=== PATIENT | female | born 1970 | race Caucasian/White ===

== ENCOUNTER → 2018-03-18 | Outpatient (CLI) | payer OTHER | LOC: M PAIN 10:00 | DX: G57.02 Lesion of sciatic nerve, left lower limb (principal); M46.90 Unspecified inflammatory spondylopathy, site unspecified; M25.552 Pain in left hip; E06.3 Autoimmune thyroiditis; I10 Essential (primary) hypertension; F41.9 Anxiety disorder, unspecified; G47.30 Sleep apnea, unspecified; Z79.899 Other long term (current) drug therapy; Z88.0 Allergy status to penicillin; Z88.1 Allergy status to other antibiotic agents; Z88.8 Allergy status to other drugs, medicaments and biological substances; Z98.84 Bariatric surgery status | CPT/HCPCS: G0463 ==

== ENCOUNTER → 2018-04-18 | Outpatient (CLI) | payer OTHER ==
[~2018-04-18] MED LIST: BUPIVACAINE HCL 0.25% 30 ML VIAL As Ordered; ISOVUE-M 300 61% 15ML VIAL (Q9967) As Ordered; LIDOCAINE 1% SDV INJ 30 ML VIAL As Ordered; TRIAMCINOLONE ACETONIDE SUSP 40 MG/ML VIAL (J3301) As Ordered; diazePAM 5 MG TAB As Ordered; oxyCODONE 5MG TAB As Ordered
== END ==
LOC: M PAIN 13:00
DX: M79.18 Myalgia, other site (principal); G57.02 Lesion of sciatic nerve, left lower limb; F41.9 Anxiety disorder, unspecified; I10 Essential (primary) hypertension; G47.30 Sleep apnea, unspecified; E66.01 Morbid (severe) obesity due to excess calories; Z68.42 Body mass index [BMI] 45.0-49.9, adult; Z79.899 Other long term (current) drug therapy; Z88.0 Allergy status to penicillin; Z88.1 Allergy status to other antibiotic agents; Z88.8 Allergy status to other drugs, medicaments and biological substances; Z98.84 Bariatric surgery status
CPT/HCPCS: J3301

== ENCOUNTER → 2018-06-05 | Outpatient (CLI) | payer OTHER ==
--- NOTE | 2018-07-01 00:18 | ECWPNPC ---
PATIENT NAME: ANITHA CORTES : 1970 GENDER: FEMALE VISIT DATE: 06/05/2018 DISCHARGE DATE: 06/05/18 1111 VISIT LOCKED DATE TIME: PHYSICIAN: DIPTI HENRY RESOURCE: DIPTI HENRY REASON FOR APPOINTMENT 1. POST PROC HISTORY OF PRESENT ILLNESS HISTORY OF PRESENT ILLNESS: HERE FOR F/U OF CHRONIC LOW BACK PAIN AND LEFT HIP PAIN.HAD LEFT PIRIFORMIS INJECTION ON 04-18-18.REPORTING 24HR IMPROVEMENT THEN PAIN RETURNED TO HIGH LEVEL.ATTENDING PT PER OUR REFERRAL FOR LBP AND LEFT HIP PAIN.FOLLOWING WITH RHEUMATOLOGY FOR INFLAMMATORY ARTHROPATHY.HISTORY OF ADVERSE REACTIONS TO DMARDS MEDICATIONS RECENTLY AND THEY WERE STOPPED.CHIEF AREA OF PAIN IS LEFT LOW BUTTOCK.DISCUSSED TREATMENT OPTIONS.RATING PAIN VAS 3/10.FINDS IT DIFFICULT TO GET IN POSITION TO SLEEP AT NIGHT. PAIN THE PATIENT DESCRIBES THE PAIN... FALL RISK SCREENING: SCREENING :NO FALLS IN THE PAST YEAR CURRENT MEDICATIONS TAKING RESTASIS 0.05 % EMULSION 1 DROP INTO AFFECTED EYE OPHTHALMIC TWICE A DAY TAKING TRINTELLIX 20 MG TABLET 1 TABLET ORALLY ONCE A DAY TAKING B-12 DOTS 500 MCG TABLET DISINTEGRATING ORALLY TAKING HYDROMORPHONE HCL 4 MG TABLET 1 TABLET NEEDED ORALLY MDD 6 TAKING TYLENOL 8 HOUR 650 MG TABLET EXTENDED RELEASE 2 TABLETS NEEDED ORALLY EVERY 8 HRS TAKING TURMERIC 400 MG CAPSULE ORALLY DAILY, NOTES: UNSURE OF DOSE NOT-TAKING METHOTREXATE 2.5 MG TABLET ORALLY NOT-TAKING FOLIC ACID 1 MG TABLET 1 TABLET ORALLY ONCE A DAY MEDICATION LIST REVIEWED AND RECONCILED WITH THE PATIENT PAST MEDICAL HISTORY ANXIETY CERVICAL DISC DISORDER CHRONIC LOW BACK PAIN DIZZINESS, FATIGUE, SYNCOPE AXIAL SPONDYLOARTHRITIS AND LUPUS HTN SLEEP APNEA PNEUMONIA BRONCHITIS ALLERGIES CLINDAMYCIN HCL ERYTHROMYCIN PENICILLIN (FOR ALLERGIES USE ONLY) SEPTRA DS DOXYCYCLINE SURGICAL HISTORY GASTRIC BYPASS 11/28/12 D AND C SINUS SURGERY 2 ANKLE SURGERY SPINAL FUSION 2013 FAMILY HISTORY FATHER: ALIVE, DIAGNOSED WITH DIABETES, HEART DISEASE MOTHER: ALIVE, DIAGNOSED WITH DIABETES SIBLINGS: ALIVE SON(S): ALIVE PATERNAL GRAND MOTHER: DIAGNOSED WITH CANCER SISTER - ALEKSANDRA'S. SOCIAL HISTORY GENERAL: TOBACCO USE ARE YOU A:NONSMOKER ALCOHOL SCREENING DID YOU HAVE A DRINK CONTAINING ALCOHOL IN THE PAST YEAR?YES HOW OFTEN DID YOU HAVE A DRINK CONTAINING ALCOHOL IN THE PAST YEAR?MONTHLY OR LESS (1 POINT) POINTS1 INTERPRETATIONNEGATIVE RECREATIONAL DRUG USE DRUG USE?NO CAFFEINE CAFFEINE USE?YES CUP OF COFFEE DAILY EPISCOPAL CDEXDUDY25 FAITH LANGUAGE LANGUAGES SPOKEN:ARABIC EDUCATION LEVEL OF EDUCATION:FINISHED COLLEGE OCCUPATION: DO YOU FEEL SAFE IN YOUR ENVIRONMENT? YES. DIET: DO YOU FEEL SAFE IN YOUR ENVIRONMENT? YES, EDUCATION. EXERCISE: DO YOU FEEL SAFE IN YOUR ENVIRONMENT? YES, EDUCATION, REGULARREDUCED PORTION. MARITAL STATUS: DO YOU FEEL SAFE IN YOUR ENVIRONMENT? YES, EDUCATION, REGULARREDUCED PORTIO "NOT ANYMORE". OTHERS AT HOME: DO YOU FEEL SAFE IN YOUR ENVIRONMENT? YES, EDUCATION, REGULARREDUCED PORTIO "NOT ANYMORE", . IMMUNIZATION PROGRAM DO YOU FEEL SAFE IN YOUR ENVIRONMENT? YES, EDUCATION, REGULARREDUCED PORTIO "NOT ANYMORE", , SPOUSE, CHILDREN. PAIN CLINIC PFS, CLERGY, PUBLIC HEALTH REFERRALS PFS REFERRAL NEEDED?NO CLERGY REFERRAL NEEDED?NO PUBLIC HEALTH REFERRAL NEEDED?NO WAS THE PROVIDER NOTIFIED OF ANY PERTINENT INFO?NO HAS THE PATIENT BEEN EDUCATED REGARDING HIS/HER PLAN OF CARE?YES HAS THE PATIENT BEEN EDUCATED REGARDING PAIN, THE RISK FOR PAIN, THE IMPORTANCE OF EFFECTIVE PAIN MANAGEMENT, AND THE PAIN ASSESSMENT PROCESS?YES HOUSING: PFS REFERRAL NEEDED? NO, CLERGY REFERRAL NEEDED? NO, PUBLIC HEALTH REFERRAL NEEDED? NO, WAS THE PROVIDER NOTIFIED OF ANY PERTINENT INFO? NO, HAS THE PATIENT BEEN EDUCATED REGARDING HIS/HER PLAN OF CARE? YES, HAS THE PATIENT BEEN EDUCATED REGARDING PAIN, THE RISK FOR PAIN, THE IMPORTANCE OF EFFECTIVE PAIN MANAGEMENT, AND THE PAIN ASSESSMENT PROCESS? YES. ADVANCE DIRECTIVE ADVANCE DIRECTIVE DISCUSSED WITH PATIENT:YES DECLINES HCP INFORMATION. REVIEWED WITH PATIENT 06/05/18 1031 JS. HOSPITALIZATION/MAJOR DIAGNOSTIC PROCEDURE MONO [facility] REVIEW OF SYSTEMS REVIEWED BY: PROVIDER: DIPTI VILLASEÑOR . CONSTITUTIONAL: ANY CHANGE IN YOUR MEDICAL CONDITION? NO . CHILLS NO . FEVER NO . INFECTION: DO YOU HAVE NEW INFECTIONS? NO . DO YOU HAVE HISTORY OF MRSA? NO . MUSCULOSKELETAL: ANY NEW PATTERNS OF PAIN OR NUMBNESS? NO . GASTROENTEROLOGY: ANY NEW CHANGE IN BOWEL CONTROL? NO . GENITOURINARY: ANY NEW CHANGE IN BLADDER CONTROL? NO . IS THERE A CHANCE YOU COULD BE ? NO . HEMATOLOGY/LYMPH: DO YOU TAKE ANY BLOOD THINNERS? (FOR EXAMPLE- COUMADIN, PLAVIX, AGGRENOX, PLATEL, PRADAXA, OR XARELTO) NO . WHEN WAS YOUR LAST DOSE? DATE: TIME: . NEUROLOGY: HAVE YOU FALLEN IN THE PAST 6 MONTHS? YES, STATES FALL END OF NOVEMBER, DISCUSSED AT PREVIOUS VISIT . ANY NEW EXTREMITY NUMBNESS OR WEAKNESS? NO . CARDIOLOGY: DO YOU HAVE A PACEMAKER OR DEFIBRILLATOR? NO . RESPIRATORY: HAVE YOU BEEN SICK IN THE PAST WEEK? NO . FEVER NO . FLU LIKE SYMPTOMS? NO . COUGH YES, PRODUCTIVE, HAS BEEN TREATED WITH 3 ROUNDS OF ANTIBIOTICS FOR BRONCHITIS AND PNEUMONIA . INTEGUMENTARY: DO YOU HAVE ANY RASHES OR OPEN SORES? NO . ALLERGIC/IMMUNO: ARE YOU ALLERGIC TO SHELLFISH OR IV DYE? NO . ANY NEW ALLERGIES? NO . PSYCHIATRIC: DO YOU HAVE THOUGHTS OF HURTING YOURSELF OR SOMEONE ELSE? NO . ARE YOU ABUSED, NEGLECTED, OR IN AN UNSAFE ENVIRONMENT? NO . ENDOCRINOLOGY: ARE YOU DIABETIC? NO . OTHER: DO YOU NEED ANY PRESCRIPTIONS? NO . IF YES, PLEASE LIST: ____ . ANY NEW PROBLEMS WITH YOUR MEDICATIONS? YES, METHOTREXATE DISCONTINUED . WHEN DID YOU LAST EAT? ____ . WHEN DID YOU LAST DRINK? ____ . WHAT DID YOU LAST DRINK? ____ . NAME OF PERSON DRIVING YOU HOME? ____ . DO YOU HAVE ANY OTHER QUESTIONS OR CONCERNS YES, PATIENT STATES SHE STARTED PT, DISCONTINUED METHOTREXATE AND WILL SEE RHEUMATOLOGY AGAIN ON 06/17/18 . VITAL SIGNS WT 203.0 LBS, HT 55 IN, BMI 47.18 INDEX, BP 137/72 MM HG, HR 66 /MIN, RR 16 /MIN, TEMP 98.0 F, OXYGEN SAT % 97%, SAFE IN ENV? (Y/N) YES, REVIEWED BY: JOHN. EXAMINATION GENERAL EXAMINATION: GENERAL APPEARANCE:AWAKE,ALERT ,PLEAASANT . PSYCHAFFECT NORMAL . LUNGS:LUNG DAILEY ARE CLEAR TO AUSCULTATION BILATERALLY. GOOD MOVEMENT OF AIR . HEART:S1, S2 IN A REGULAR RATE AND RHYTHM. NO SIGNIFICANT MURMURS, RUBS OR GALLOPS NOTED . MUSCULOSKELETAL:WEAK OVER RIGHT LEG . LUMBAR SACRAL SPINEPALPATION: + FOR PAIN OVER LEFT PIRIFORMIS MUSCLE.. + FOR PAIN OVER L/S PARASPINALS . NEUROLOGIC EXAM:NORMAL SENSATION LIGHT TOUCH BILAT. LOWER EXTREMITIES . 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 PROCEDURE CODES FA211 ESTABILISHED PATIENT [facility] FACILITY CHARGE DISPOSITION & COMMUNICATION FOLLOW UP POST (REASON: LEFT PIRIFORMIS(OR LOWER) STEROID INJECTION) ELECTRONICALLY SIGNED BY KASI COON ON 06/30/2018 AT 03:41 PM EST DISCLAIMER : THIS IS A VISIT SUMMARY EXTRACTED FROM THE [employer] CHART. IT IS NOT A COPY OF THE [employer] PROGRESS NOTE. RAJEEV
== END ==
LOC: M PAIN 10:15
PROVIDERS: ATTEND Nurse Practitioner Family
DX: G57.02 Lesion of sciatic nerve, left lower limb (principal); M46.90 Unspecified inflammatory spondylopathy, site unspecified; M25.552 Pain in left hip; F41.1 Generalized anxiety disorder; I10 Essential (primary) hypertension; Z79.891 Long term (current) use of opiate analgesic; Z79.899 Other long term (current) drug therapy; Z98.84 Bariatric surgery status; Z88.0 Allergy status to penicillin; Z88.1 Allergy status to other antibiotic agents

== ENCOUNTER → 2018-07-01 | Outpatient (CLI) | payer OTHER ==
[~2018-07-01] MED LIST changes: -BUPIVACAINE HCL 0.25% 30 ML VIAL As Ordered; +BUPIVACAINE HCL 0.25% 30 ML VIAL As Ordered ONE; -ISOVUE-M 300 61% 15ML VIAL (Q9967) As Ordered; +ISOVUE-M 300 61% 15ML VIAL (Q9967) As Ordered ONE; -LIDOCAINE 1% SDV INJ 30 ML VIAL As Ordered; +LIDOCAINE 1% SDV INJ 30 ML VIAL As Ordered ONE; -TRIAMCINOLONE ACETONIDE SUSP 40 MG/ML VIAL (J3301) As Ordered; +TRIAMCINOLONE ACETONIDE SUSP 40 MG/ML VIAL (J3301) As Ordered ONE; -diazePAM 5 MG TAB As Ordered; +diazePAM 5 MG TAB As Ordered ONE; -oxyCODONE 5MG TAB As Ordered; +oxyCODONE 5MG TAB As Ordered ONE
--- NOTE | 2018-07-01 13:36 | REP ---
Left hip: Two views. History: Injection procedure for pain. 14 seconds of fluoroscopy time is reported. Findings: A sequence of two last image hold fluoroscopically obtained spot radiographs document needle position and contrast injection associated with injection procedure. Electronically Signed by Jesus Flores MD 07/01/2018 01:47 P
--- NOTE | 2018-07-15 00:31 | ECWPNPC ---
PATIENT NAME: ANITHA CORTES : 1970 GENDER: FEMALE VISIT DATE: 07/01/2018 DISCHARGE DATE: 07/01/18 1307 VISIT LOCKED DATE TIME: PHYSICIAN: LIU LOERA MD RESOURCE: LIU LOERA MD REASON FOR APPOINTMENT 1. LEFT PIRIFORMIS HISTORY OF PRESENT ILLNESS HISTORY OF PRESENT ILLNESS: PAIN THE PATIENT DESCRIBES THE PAIN... FALL RISK SCREENING: SCREENING :NO FALLS IN THE PAST YEAR CURRENT MEDICATIONS TAKING RESTASIS 0.05 % EMULSION 1 DROP INTO AFFECTED EYE OPHTHALMIC TWICE A DAY, NOTES: 0900 TAKING TRINTELLIX 20 MG TABLET 1 TABLET ORALLY ONCE A DAY, NOTES: 0900 TAKING B-12 DOTS 500 MCG TABLET DISINTEGRATING ORALLY , NOTES: 0900 TAKING HYDROMORPHONE HCL 4 MG TABLET 1 TABLET NEEDED ORALLY MDD 6, NOTES: 06/30/18@1400 TAKING TYLENOL 8 HOUR 650 MG TABLET EXTENDED RELEASE 2 TABLETS NEEDED ORALLY EVERY 8 HRS, NOTES: NONE RECENTLY TAKING TURMERIC 400 MG CAPSULE ORALLY DAILY, NOTES: 0900 DISCONTINUED METHOTREXATE 2.5 MG TABLET ORALLY DISCONTINUED FOLIC ACID 1 MG TABLET 1 TABLET ORALLY ONCE A DAY MEDICATION LIST REVIEWED AND RECONCILED WITH THE PATIENT PAST MEDICAL HISTORY ANXIETY CERVICAL DISC DISORDER CHRONIC LOW BACK PAIN DIZZINESS, FATIGUE, SYNCOPE AXIAL SPONDYLOARTHRITIS AND LUPUS HTN SLEEP APNEA PNEUMONIA BRONCHITIS ALLERGIES CLINDAMYCIN HCL ERYTHROMYCIN PENICILLIN (FOR ALLERGIES USE ONLY) SEPTRA DS SURGICAL HISTORY GASTRIC BYPASS 11/28/12 D AND C SINUS SURGERY 2 ANKLE SURGERY SPINAL FUSION 2013 FAMILY HISTORY FATHER: ALIVE, DIAGNOSED WITH DIABETES, HEART DISEASE MOTHER: ALIVE, DIAGNOSED WITH DIABETES SIBLINGS: ALIVE SON(S): ALIVE PATERNAL GRAND MOTHER: DIAGNOSED WITH CANCER SISTER - HOSHIMOTO'S. SOCIAL HISTORY GENERAL: TOBACCO USE ARE YOU A:NONSMOKER ALCOHOL SCREENING DID YOU HAVE A DRINK CONTAINING ALCOHOL IN THE PAST YEAR?YES HOW OFTEN DID YOU HAVE A DRINK CONTAINING ALCOHOL IN THE PAST YEAR?MONTHLY OR LESS (1 POINT) POINTS1 INTERPRETATIONNEGATIVE RECREATIONAL DRUG USE DRUG USE?NO CAFFEINE CAFFEINE USE?YES CUP OF COFFEE DAILY HOAHAOISM [id number] SABIANISM LANGUAGE LANGUAGES SPOKEN:AZERI EDUCATION LEVEL OF EDUCATION:FINISHED COLLEGE OCCUPATION: DO YOU FEEL SAFE IN YOUR ENVIRONMENT? YES. DIET: DO YOU FEEL SAFE IN YOUR ENVIRONMENT? YES, EDUCATION. EXERCISE: DO YOU FEEL SAFE IN YOUR ENVIRONMENT? YES, EDUCATION, REGULARREDUCED PORTION. MARITAL STATUS: DO YOU FEEL SAFE IN YOUR ENVIRONMENT? YES, EDUCATION, REGULARREDUCED PORTIO "NOT ANYMORE". OTHERS AT HOME: DO YOU FEEL SAFE IN YOUR ENVIRONMENT? YES, EDUCATION, REGULARREDUCED PORTIO "NOT ANYMORE", . IMMUNIZATION PROGRAM DO YOU FEEL SAFE IN YOUR ENVIRONMENT? YES, EDUCATION, REGULARREDUCED PORTIO "NOT ANYMORE", , SPOUSE, CHILDREN. PAIN CLINIC PFS, CLERGY, PUBLIC HEALTH REFERRALS PFS REFERRAL NEEDED?NO CLERGY REFERRAL NEEDED?NO PUBLIC HEALTH REFERRAL NEEDED?NO WAS THE PROVIDER NOTIFIED OF ANY PERTINENT INFO?NO HAS THE PATIENT BEEN EDUCATED REGARDING HIS/HER PLAN OF CARE?YES HAS THE PATIENT BEEN EDUCATED REGARDING PAIN, THE RISK FOR PAIN, THE IMPORTANCE OF EFFECTIVE PAIN MANAGEMENT, AND THE PAIN ASSESSMENT PROCESS?YES HOUSING: PFS REFERRAL NEEDED? NO, CLERGY REFERRAL NEEDED? NO, PUBLIC HEALTH REFERRAL NEEDED? NO, WAS THE PROVIDER NOTIFIED OF ANY PERTINENT INFO? NO, HAS THE PATIENT BEEN EDUCATED REGARDING HIS/HER PLAN OF CARE? YES, HAS THE PATIENT BEEN EDUCATED REGARDING PAIN, THE RISK FOR PAIN, THE IMPORTANCE OF EFFECTIVE PAIN MANAGEMENT, AND THE PAIN ASSESSMENT PROCESS? YES. ADVANCE DIRECTIVE ADVANCE DIRECTIVE DISCUSSED WITH PATIENT:YES DECLINES HCP INFORMATION. REVIEWED WITH PATIENT 06/05/18 1031 JS. HOSPITALIZATION/MAJOR DIAGNOSTIC PROCEDURE MONO 2006 REVIEW OF SYSTEMS REVIEWED BY: PROVIDER: . CONSTITUTIONAL: ANY CHANGE IN YOUR MEDICAL CONDITION? NO . CHILLS NO . FEVER NO . INFECTION: DO YOU HAVE NEW INFECTIONS? NO . DO YOU HAVE HISTORY OF MRSA? NO . MUSCULOSKELETAL: ANY NEW PATTERNS OF PAIN OR NUMBNESS? NO . GASTROENTEROLOGY: ANY NEW CHANGE IN BOWEL CONTROL? NO . GENITOURINARY: ANY NEW CHANGE IN BLADDER CONTROL? NO . IS THERE A CHANCE YOU COULD BE ? NO . HEMATOLOGY/LYMPH: DO YOU TAKE ANY BLOOD THINNERS? (FOR EXAMPLE- COUMADIN, PLAVIX, AGGRENOX, PLATEL, PRADAXA, OR XARELTO) NO . WHEN WAS YOUR LAST DOSE? DATE: TIME: . NEUROLOGY: HAVE YOU FALLEN IN THE PAST 12 MONTHS? YES . ANY NEW EXTREMITY NUMBNESS OR WEAKNESS? NO . CARDIOLOGY: DO YOU HAVE A PACEMAKER OR DEFIBRILLATOR? NO . RESPIRATORY: HAVE YOU BEEN SICK IN THE PAST WEEK? NO . FEVER NO . FLU LIKE SYMPTOMS? NO . COUGH NO . INTEGUMENTARY: DO YOU HAVE ANY RASHES OR OPEN SORES? NO . ALLERGIC/IMMUNO: ARE YOU ALLERGIC TO IV DYE? NO . ANY NEW ALLERGIES? NO . PSYCHIATRIC: DO YOU HAVE THOUGHTS OF HURTING YOURSELF OR SOMEONE ELSE? NO . ARE YOU ABUSED, NEGLECTED, OR IN AN UNSAFE ENVIRONMENT? NO . ENDOCRINOLOGY: ARE YOU DIABETIC? NO . OTHER: DO YOU NEED ANY PRESCRIPTIONS? NO . IF YES, PLEASE LIST: ____ . ANY NEW PROBLEMS WITH YOUR MEDICATIONS? NO . WHEN DID YOU LAST EAT? ____06/30/18 . WHEN DID YOU LAST DRINK? ____06/30/18 . WHAT DID YOU LAST DRINK? ____TEA . NAME OF PERSON DRIVING YOU HOME? ____REUBEN . DO YOU HAVE ANY OTHER QUESTIONS OR CONCERNS NO . VITAL SIGNS WT 199.4 LBS, HT 55 IN, BMI 46.34 INDEX, BP 141/84 MM HG, HR 57 /MIN, RR 16 /MIN, TEMP 98.3 F, OXYGEN SAT % 98%, SAFE IN ENV? (Y/N) Y, NA INITIALS AW 1059, REVIEWED BY: BROOKE. ASSESSMENTS MYALGIA, OTHER SITE - M79.18 (PRIMARY) PIRIFORMIS SYNDROME OF LEFT SIDE - G57.02 TREATMENT PIRIFORMIS SYNDROME OF LEFT SIDE [facility] FLUORO GUIDANCE (PAIN)[id number] PROCEDURES PREOPERATIVE DIAGNOSIS: LEFT PIRIFORMIS SYNDROME. MYALGIAPOSTOPERATIVE DIAGNOSIS: LEFT PIRIFORMIS SYNDROME. MYALGIAPROCEDURE: LEFT PIRIFORMIS MUSCLE BLOCK UNDER FLUOROSCOPIC GUIDANCE.ANESTHESIA: LOCAL.SURGEON: LIU PIERRE M.D.PREOPERATIVE NOTE: THE PATIENT HAS HISTORY OF CHRONIC LOW BACK PAIN. I EVALUATED THE PATIENT AND REVIEWED THE CHART. WE BOTH AGREED ON PERFORMING A LEFT PIRIFORMIS MUSCLE BLOCK UNDER FLUOROSCOPIC GUIDANCE. I WENT THROUGH THE RISKS, ALTERNATIVES AND BENEFITS ASSOCIATED WITH THIS PROCEDURE AND THE PATIENTEXPRESSED THAT SHE WOULD LIKE TO PROCEED. THE PATIENT DENIES UNEXPLAINABLE WEIGHT LOSS, FEVER, CHILLS, OR CHANGES IN URINARY OR BOWEL CONTROL.PROCEDURE NOTE: AFTER CONSENT WAS TAKEN, THE PATIENT WAS BROUGHT TO THE PROCEDURE ROOM AND THE PATIENT WAS PLACED IN THE PRONE POSITION. THE LUMBOSACRAL AREA WAS CLEANED WITH CHLORAPREP SOLUTION AND DRAPED ASEPTICALLY. THE PROCEDURE WAS DONE UNDER STERILE CONDITIONS. LATERALLITY WAS CHECK WITH THE PATIENT AND THE STAFF AT THE TIME OF TIME OUT. UNDER FLUOROSCOPIC GUIDANCE, THE TARGET POINT WAS SELECTED AT THE MIDDLE AREA BETWEEN THE LEFT GREATER TROCHANTER OF THE FEMUR AND THE BORDER OF THE SACRUM. LIDOCAINE WAS USED TO NUMB THE SKIN AND THE SUBCUTANEOUS TISSUE BELOW IT. A SPINAL NEEDLE 22 GAUGE, WAS ADVANCED UNDER FLUOROSCOPIC GUIDANCE TO THE SUBSTANCE OF THE LEFT PIRIFORMIS MUSCLE. WHEN APPROPRIATE POSITION OF THE NEEDLE WAS ACHIEVED, ISOVUE-M DYE 30%, 0.25 ML, WAS INJECTED SHOWING ADEQUATE SPREAD OF THE DYE. THEN A SOLUTION OF 30 ML OF BUPIVACAINE, 0.25%, AND KENALOG 40 MG WAS INJECTED. THERE WAS NO EVIDENCE OF BLOOD, PARESTHESIAS OR CEREBROSPINAL FLUID. THE PATIENT WAS SENT TO THE RECOVERY ROOM WHERE SHE WAS MOVING HER EXTREMITIES AND DOING WELL. THERE WERE NO COMPLICATIONS DURING THE PROCEDURE. FLUOROSCOPY TIME WAS 14 SECONDS.POSTOPERATIVE NOTE: I DISCUSSED ALTERNATIVES WITH THE PATIENT. I AM LOOKING FOR LONG-LASTING PAIN RELIEF WITH THIS INTERVENTION. THERE WERE NO COMPLICATIONS. FURTHER RECOMMENDATIONS DEPEND ON HOW THE PATIENT DOES. INSTRUCTIONS WERE GIVEN QUESTIONS WERE ANSWERED PATIENT REPORTS UNDERSTANDING AND AGREES WITH THE PLAN. I, BEULAH MARS, DOCUMENTED THE ABOVE INFORMATION ACTING A SCRIBE FOR DR. LOERA. I HAVE REVIEWED THE ABOVE DOCUMENT, WRITTEN BY BEULAH TAYLORIBAris AND I VERIFY THAT IT IS ACCURATE. PROCEDURE CODES 6045F RADXPS IN END [id number] PXD [id number] INJ TRIGGER POINT 06/12 MUSCL 11901 NEEDLE LOCALIZATION BY UMAIR, MODIFIERS: 26 DISPOSITION & COMMUNICATION FOLLOW UP 3 WEEKS ELECTRONICALLY SIGNED BY LIU LOERA MD, MD ON 07/14/2018 AT 06:12 PM EST DISCLAIMER : THIS IS A VISIT SUMMARY EXTRACTED FROM THE [employer] CHART. IT IS NOT A COPY OF THE [employer] PROGRESS NOTE. MTDD
== END ==
LOC: M PAIN 10:45
PROVIDERS: ATTEND Anesthesiology
DX: M79.18 Myalgia, other site (principal); G57.02 Lesion of sciatic nerve, left lower limb; I10 Essential (primary) hypertension; F41.9 Anxiety disorder, unspecified; G47.30 Sleep apnea, unspecified; E66.01 Morbid (severe) obesity due to excess calories; Z68.42 Body mass index [BMI] 45.0-49.9, adult; Z79.899 Other long term (current) drug therapy; Z88.0 Allergy status to penicillin; Z88.1 Allergy status to other antibiotic agents; Z88.8 Allergy status to other drugs, medicaments and biological substances; Z98.84 Bariatric surgery status; Z87.39 Personal history of other diseases of the musculoskeletal system and connective tissue; Z86.69 Personal history of other diseases of the nervous system and sense organs
CPT/HCPCS: 20552; 77002; J3301; Q9967